=== PATIENT | female | born 1945 ===

== ENCOUNTER 2023-12-27 16:02 | Emergency (ER) | payer OTHER, SELFPAY ==
[2023-12-27 16:06] VITALS: BP 167/79
[2023-12-27 16:52] VITALS: BMI 41.2
[2023-12-27 17:01] VITALS: BP 102/68
[2023-12-27 17:03] LABS: % Basophils 1.3 % (0-2); % Eosinophils 4.3 % (0-6); % Immature Granulocytes 0.6 % (0-0.5); % Lymphocytes 24.4 % (20.5-51.1); % Monocytes 10.5 % (1.7-9.3); % Neutrophils 58.9 % (42.2-75.2); Absolute Basophils 0.1 10^3/uL (0-0.2); Absolute Eosinophils 0.3 10^3/uL (0-0.7); Absolute Lymphocytes 1.7 10^3/uL (1.2-3.4); Absolute Monocytes 0.7 10^3/uL (0.1-0.6); Absolute Neutrophils 4.1 10^3/uL (1.4-6.5); Hemoglobin 11.5 g/dL (12.0-16.0); Mean Corp Hgb Conc. 34.8 g/dL (33.0-37.0); Mean Corpuscular Hgb 31.4 pg (27.0-31.0); Mean Corpuscular Volume 90.2 fL (81.0-99.0); Mean Platelet Volume 9.2 fL (7.4-10.4); Nucleated Red Blood Cells % 0 %; Platelet Count 274 10^3/uL (130-400); Red Blood Cell Count 3.66 10^6/uL (4.20-5.40); Red Cell Dist. Width 13.5 % (11.5-14.5)
[2023-12-27 18:00] VITALS: BP 149/69
[2023-12-27 18:20] LABS: ALT (SGPT) 17 U/L (0-35); AST (SGOT) 30 U/L (14-36); Albumin 4.2 g/dl (3.5-5.0); Alkaline Phosphatase 66 U/L (38-126); Blood Urea Nitrogen 35 mg/dl (7-17); Calcium 9.9 mg/dl (8.4-10.2); Carbon Dioxide 20 mmol/L (22-30); Chloride 103 mmol/L (98-107); Estimated Creatinine Clearance 40 ml/min; Glucose 96 mg/dl (70-99); Potassium 5.1 mmol/L (3.5-5.1); Sodium 138 mmol/L (135-145); Total Bilirubin 0.7 mg/dl (0.2-1.3); Total Protein 6.6 g/dl (6.3-8.2); eGFR 51.43
--- NOTE | 2023-12-27 18:37 | ED.GENMED ---
History of Present Illness
General
Chief Complaint: Abnormal Lab Value
Source: patient and family
Exam Limitations: none
Time Seen by Provider: 12/27/23 16:25
Nursing documentation reviewed up to this point in time: agreed with
History of Present Illness
History of Present Illness:
78-year-old female past medical history of CHF hypertension presenting to the emergency department today with concerns of elevated potassium level as an outpatient of 6.2. Denies any symptoms at this time.
Past History
Past History
ED Past Medical History: CHF and HTN
ED Past Surgical History: None
Social History
Tobacco: Non-smoker
Alcohol: None
Review of Systems
Review of Systems
Allergies reviewed?: Yes
All Other Systems: ROS reviewed and negative except as documented in HPI and ROS
Phy Exam
Physical Exam
Physical Exam:
GENERAL: Alert , in no apparent distress
EYE: pupils equal and reactive
NECK: Supple, no significant adenopathy.
ENT: o/p clr, mmm.
CARDIAC: Regular rate and rhythm .
LUNGS: Clear breath sounds bilaterally, no acute respiratory distress, no wheezes/rales/rhonchi
ABDOMEN: Soft, without focal tenderness, no r/g, no cvat
NEUROLOGICAL: Alert and oriented, no focal neuro deficits
SKIN: Warm and dry, skin intact.
MUSCULOSKELETAL: No edema, well perfused.
PSYCH: Normal and appropriate interaction.
Course
Orders/Labs/Results
Orders:
Orders
12/27/23 16:25
EKG [Electrocardiogram (*1)] Urgent
Reason for Study: Other
Other Reason for Exam: Hyperk
12/27/23 16:28
EKG- Treatment ONCE
12/27/23 16:55
CBC/With Diff [Complete Blood Count/With Diff] Urgent
12/27/23 17:40
Comprehensive Metabolic Panel Urgent
Abnormal Lab Results
12/27/23 12/27/23
16:55 17:40
RBC 3.66 L 10^6/uL
(4.20-5.40)
Hgb 11.5 L g/dL
(12.0-16.0)
Hct 33.0 L %
(37.0-47.0)
MCH 31.4 H pg
(27.0-31.0)
Absolute Monos (auto) 0.7 H 10^3/uL
(0.1-0.6)
Immature Gran % 0.6 H %
(0-0.5)
Monocytes % 10.5 H %
(1.7-9.3)
Carbon Dioxide 20 L mmol/L
(22-30)
BUN 35 H mg/dl
(7-17)
Creatinine 1.1 H mg/dL
(0.6-1.0)
12/27/23 16:55
12/27/23 17:40
Vital Signs
Initial and Last Documented VS:
Initial Vital Signs
Temp Pulse Resp BP Pulse Ox
98.1 F 61 16 167/79 96
12/27/23 16:06 12/27/23 16:06 12/27/23 16:06 12/27/23 16:06 12/27/23 16:06
Last Documented Vital Signs
Temp Pulse Resp BP Pulse Ox
98.1 F 57 26 149/69 96
12/27/23 16:06 12/27/23 18:15 12/27/23 18:15 12/27/23 18:00 12/27/23 16:06
MDM/Problems Addressed
MDM/Problems Addressed:
78-year-old female presenting to the emergency department today with concerns of elevated potassium level as an outpatient of 6.2 vital signs normal here patient in no distress labs were routine there were not ordered for any particular symptoms.
Potassium repeated here 5.1. Patient with likely falsely elevated potassium level as an outpatient. Patient appears stable for discharge return precautions given.
*Critical Care Note
Total Time (30-74mins, 75-104mins- exclusive of procedures): Not Applicable
ED Attending Note
-
Portions of this chart may have been created with voice recognition software.� Occasional wrong word or��sound alike� substitutions may have occurred due to the inherent limitations of voice recognition software.
Discharge Plan
Departure
Patient Disposition: Home (Routine Discharge)
Date of Disposition: 12/27/23
Time of Disposition: 18:39
Patient with high blood pressure during this ER visit?: No
Condition: Good
Covid-19: Not Applicable
Discharge Problem:
Abnormal laboratory test
Instructions: Hyperkalemia (DC)
Prescriptions:
No Action
losartan 50 MG tablet
50 mg PO NOW
metoprolol tartrate 100 MG tablet
100 mg PO DAILY
omeprazole 40 MG capsule,delayed release(DR/EC)
40 mg PO DAILY
spironolactone 25 MG tablet
25 mg PO DAILY
simvastatin 40 MG tablet
40 mg PO HS
paroxetine HCl 20 MG tablet
40 mg PO DAILY
hydrochlorothiazide 12.5 MG capsule
12.5 mg PO DAILY
aspirin 81 MG tablet,chewable
81 mg PO DAILY Qty: 30 0RF
doxycycline hyclate 100 MG capsule
100 mg PO Q12 Qty: 10 0RF
cefuroxime axetil 500 MG tablet
500 mg PO BID Qty: 10 0RF
albuterol sulfate 1 PUFF HFA aerosol inhaler
2 puff inhalation R Q4HPRN PRN (Reason: shortness of breath) Qty: 1 0RF
Referrals:
Yahaira Perrin MD [Family Provider] -
Activity Restrictions/Additional Instructions:
You came to the emergency department today with concerns of an outpatient abnormal lab. Here it was normal. Please follow closely as an outpatient. Return to the emergency department any worsening, new or concerning symptoms.
Interventions
Interventions:
*Risk Screen - Suicide Last Done: 12/27/23 16:52
*General Assessment Last Done: 12/27/23 16:52
*Neglect/Abuse Screening Last Done: 12/27/23 16:52
ED- Fall Risk Assessment Last Done: 12/27/23 16:52
*ED COVID-19 Vaccine History Last Done: 12/27/23 16:52
Discharge Date and Time
Print Language: ARMENIAN
== END 2023-12-27 18:55 | disposition home or self-care (01) ==
LOC: EMR 16:02
PROVIDERS: Physician Assistant; EMERGENCY PHYSICIAN Emergency Medicine; FAMILY PHYSICIAN Emergency Medicine
DX: R79.89 Other specified abnormal findings of blood chemistry (principal); I11.0 Hypertensive heart disease with heart failure; I50.9 Heart failure, unspecified; F32.A Depression, unspecified; Z88.1 Allergy status to other antibiotic agents; Z96.653 Presence of artificial knee joint, bilateral; Z87.891 Personal history of nicotine dependence; Z86.16 Personal history of COVID-19; Z79.899 Other long term (current) drug therapy
CPT/HCPCS: 99283; 80053; 85025; 93005

== ENCOUNTER → 2024-02-10 14:08 | Outpatient (REF) | payer OTHER, SELFPAY ==
[2024-02-10 16:36] LABS: % Basophils 1.3 % (0-2); % Eosinophils 3.2 % (0-6); % Immature Granulocytes 0.4 % (0-0.5); % Lymphocytes 23.8 % (20.5-51.1); % Neutrophils 60.3 % (42.2-75.2); Absolute Basophils 0.1 10^3/uL (0-0.2); Absolute Eosinophils 0.3 10^3/uL (0-0.7); Absolute Lymphocytes 1.8 10^3/uL (1.2-3.4); Absolute Monocytes 0.9 10^3/uL (0.1-0.6); Absolute Neutrophils 4.7 10^3/uL (1.4-6.5); Hematocrit 35.3 % (37.0-47.0); Hemoglobin 11.5 g/dL (12.0-16.0); Mean Corp Hgb Conc. 32.6 g/dL (33.0-37.0); Mean Corpuscular Hgb 30.9 pg (27.0-31.0); Mean Corpuscular Volume 94.9 fL (81.0-99.0); Mean Platelet Volume 9.5 fL (7.4-10.4); Nucleated Red Blood Cells % 0 %; Platelet Count 244 10^3/uL (130-400); Red Blood Cell Count 3.72 10^6/uL (4.20-5.40); Red Cell Dist. Width 13.4 % (11.5-14.5); White Blood Cell Count 7.7 10^3/uL (4.8-10.8)
[2024-02-10 17:07] LABS: NT-proBNP 657 pg/ml
[2024-02-10 17:24] LABS: TSH Reflex To Free T4 7.55 uIU/ml (0.47-4.68)
[2024-02-10 17:52] LABS: Free T4 1.39 ng/dl (0.78-2.19)
== END ==
LOC: RAD 14:08
PROVIDERS: ATTENDING PHYSICIAN Emergency Medicine
DX: R05.3 Chronic cough (principal); R06.02 Shortness of breath; R60.0 Localized edema; E03.9 Hypothyroidism, unspecified
CPT/HCPCS: 36415; 71046; 83880; 84439; 84443; 85025

== ENCOUNTER → 2024-03-05 15:21 | Outpatient (REF) | payer OTHER, SELFPAY | LOC: RAD 15:21 | PROVIDERS: ATTENDING PHYSICIAN Emergency Medicine | DX: R93.89 Abnormal findings on diagnostic imaging of other specified body structures (principal) | CPT/HCPCS: 71046 ==

== ENCOUNTER → 2024-03-12 13:47 | Outpatient (REF) | payer OTHER, SELFPAY | LOC: HWRAD 13:47 | PROVIDERS: ATTENDING PHYSICIAN Emergency Medicine | DX: R93.89 Abnormal findings on diagnostic imaging of other specified body structures (principal) | CPT/HCPCS: 71260; Q9967 ==

== ENCOUNTER → 2024-11-29 17:07 | Outpatient (REF) | payer OTHER, SELFPAY | LOC: RAD 17:07 | PROVIDERS: ATTENDING PHYSICIAN Family Medicine | DX: M25.551 Pain in right hip (principal) | CPT/HCPCS: 73502 ==